=== PATIENT | female | born 1970 | race Caucasian/White ===

== ENCOUNTER → 2016-12-26 | Outpatient (CLI) | payer BC | LOC: LAB 08:17 | DX: R30.0 Dysuria (principal); N30.01 Acute cystitis with hematuria ==

== ENCOUNTER → 2017-04-10 | Outpatient (CLI) | payer BC | LOC: RAD 09:46 | DX: R10.2 Pelvic and perineal pain (principal) ==

== ENCOUNTER → 2017-04-16 | Outpatient (CLI) | payer BC | LOC: RAD 11:15 | DX: R10.2 Pelvic and perineal pain (principal); M89.9 Disorder of bone, unspecified ==

== ENCOUNTER → 2017-04-20 | Outpatient (CLI) | payer BC | LOC: RAD 09:55 | DX: R10.2 Pelvic and perineal pain (principal) ==

== ENCOUNTER 2017-05-21 08:05 | Outpatient (RCR) | payer BC | END 2017-05-21 09:00 | disposition home or self-care (01) | LOC: PT 08:05 | DX: M25.552 Pain in left hip (principal) ==

== ENCOUNTER → 2017-12-20 | Outpatient (CLI) | payer BC ==
[2017-12-20 07:21] LABS: EOS # 0.1 (0.04-0.40); EOS % 1.7 % (1.0-5.0); HEMATOCRIT 43.2 % (37.0-47.0); HEMOGLOBIN 14.3 g/dL (12.5-16.0); LYMPH# 1.8 (1.50-4.00); MEAN CELL VOLUME 95 fl (78-100); MEAN CORPUSCULAR HEMOGLOBIN 31 pg (27-31); MEAN CORPUSCULAR HGB CONC 33 g/dL (33-37); MEAN PLATELET VOLUME 9.1 fl (7.4-10.4); MONO # 0.7 (0.20-0.80); NEU # 4.5 (1.40-6.50); PLATELET COUNT 244 K/mm3 (130-400); RED BLOOD COUNT 4.57 M/mm3 (4.10-5.30); RED CELL DISTRIBUTION WIDTH 13.3 % (11.5-14.5); WHITE BLOOD COUNT 7.2 K/mm3 (4.8-10.8)
[2017-12-20 07:29] LABS: ALBUMIN 4.3 g/dL (3.5-5.0); BUN/CREATININE RATIO 15.7 (6.0-26.0); CALCIUM 9.2 mg/dL (8.4-10.2); TOTAL BILIRUBIN 0.5 mg/dL (0.2-1.3); TOTAL PROTEIN 8.2 g/dL (6.3-8.2)
[2017-12-20 08:33] LABS: ERYTHROCYTE SEDIMENTATION RATE 3 mm/hr (0-20)
== END ==
LOC: LAB 07:06
PROVIDERS: Internal Medicine
DX: Z00.00 Encounter for general adult medical examination without abnormal findings (principal)

== ENCOUNTER → 2017-12-28 | Outpatient (CLI) | payer BC ==
[2017-12-29 00:36] LABS: T3 TOTAL 89 ng/dL (87-178)
== END ==
LOC: LAB 09:23
PROVIDERS: Internal Medicine
DX: R94.6 Abnormal results of thyroid function studies (principal)

== ENCOUNTER → 2018-02-11 | Outpatient (CLI) | payer BC ==
[2018-02-12 01:28] LABS: T3 TOTAL 91 ng/dL (87-178)
== END ==
LOC: LAB 07:20
PROVIDERS: Internal Medicine
DX: R94.6 Abnormal results of thyroid function studies (principal); E03.4 Atrophy of thyroid (acquired)

== ENCOUNTER → 2018-05-14 | Outpatient (CLI) | payer BC | LOC: LAB 07:28 | DX: E03.9 Hypothyroidism, unspecified (principal) ==

== ENCOUNTER → 2018-10-25 | Outpatient (CLI) | payer BC | LOC: LAB 07:40 | DX: E03.9 Hypothyroidism, unspecified (principal) ==

== ENCOUNTER → 2018-11-15 | Outpatient (CLI) | payer BC | LOC: RAD 07:29 | DX: E04.1 Nontoxic single thyroid nodule (principal) ==

== ENCOUNTER → 2019-01-22 | Outpatient (CLI) | payer BC | LOC: LAB 07:04 | DX: E03.9 Hypothyroidism, unspecified (principal) ==

== ENCOUNTER → 2019-12-11 | Outpatient (CLI) | payer BC | LOC: LAB 07:13 | DX: E03.4 Atrophy of thyroid (acquired) (principal); E04.2 Nontoxic multinodular goiter ==

== ENCOUNTER → 2020-05-17 | Outpatient (CLI) | payer BC | LOC: LAB 10:44 | DX: Z01.818 Encounter for other preprocedural examination (principal); Z20.828 Contact with and (suspected) exposure to other viral communicable diseases ==

== ENCOUNTER → 2020-05-20 | Day surgery (SDC) | payer BC | LOC: MSO 08:03 | DX: Z12.11 Encounter for screening for malignant neoplasm of colon (principal) | CPT/HCPCS: 00812; J2704; J3010; J7120 ==

== ENCOUNTER → 2020-06-24 | Outpatient (CLI) | payer BC ==
[2020-06-24 08:09] LABS: EOS # 0.1 (0.04-0.40); EOS % 1.3 % (1.0-5.0); HEMATOCRIT 41.4 % (37.0-47.0); LYMPH# 1.6 (1.50-4.00); MEAN CELL VOLUME 95 fl (78-100); MEAN CORPUSCULAR HEMOGLOBIN 32 pg (27-31); MEAN CORPUSCULAR HGB CONC 34 g/dL (33-37); MEAN PLATELET VOLUME 9.1 fl (7.4-10.4); MONO # 0.5 (0.20-0.80); PLATELET COUNT 252 K/mm3 (130-400); RED BLOOD COUNT 4.37 M/mm3 (4.10-5.30); WHITE BLOOD COUNT 6.2 K/mm3 (4.8-10.8)
[2020-06-24 08:18] LABS: ALBUMIN 4.2 g/dL (3.5-5.0); POTASSIUM 4.4 mmol/L (3.5-5.1)
[2020-06-24 08:19] LABS: CALCIUM 9.2 mg/dL (8.3-10.5)
[2020-06-24 08:21] LABS: TOTAL PROTEIN 7.7 g/dL (6.4-8.3)
[2020-06-24 08:22] LABS: TOTAL BILIRUBIN 0.5 mg/dL (0.2-1.2)
[2020-06-24 09:18] LABS: ERYTHROCYTE SEDIMENTATION RATE 5 mm/hr (0-20)
== END ==
LOC: RAD 07:55
PROVIDERS: Internal Medicine
DX: Z00.00 Encounter for general adult medical examination without abnormal findings (principal); E04.2 Nontoxic multinodular goiter; E03.9 Hypothyroidism, unspecified

== ENCOUNTER → 2020-07-13 | Outpatient (CLI) | payer BC | LOC: RAD 08:01 | DX: M25.551 Pain in right hip (principal); M25.552 Pain in left hip; R10.2 Pelvic and perineal pain; G89.29 Other chronic pain ==

== ENCOUNTER → 2020-08-17 | Outpatient (CLI) | payer BC | LOC: RAD 07:00 | DX: M16.12 Unilateral primary osteoarthritis, left hip (principal) ==

== ENCOUNTER → 2020-12-24 | Outpatient (CLI) | payer BC | LOC: MAMMO 12:53 | DX: Z12.31 Encounter for screening mammogram for malignant neoplasm of breast (principal) ==

== ENCOUNTER → 2021-04-26 | Outpatient (CLI) | payer BC | LOC: LAB 07:12 | DX: E03.9 Hypothyroidism, unspecified (principal) ==

== ENCOUNTER → 2021-12-20 | Outpatient (CLI) | payer BC ==
[2021-12-20 12:02] LABS: BASO # 0.04 K/mm3 (0.02-0.10); EOS # 0.08 K/mm3 (0.04-0.40); EOS % 1.2 % (1.0-5.0); HEMATOCRIT 42.8 % (37.0-47.0); HEMOGLOBIN 14.3 g/dL (12.5-16.0); LYMPH# 1.95 K/mm3 (1.50-4.00); MEAN CELL VOLUME 96 fl (78-100); MEAN CORPUSCULAR HEMOGLOBIN 32 pg (27-31); MEAN CORPUSCULAR HGB CONC 33 g/dL (33-37); MEAN PLATELET VOLUME 9.1 fl (7.4-10.4); MONO # 0.55 K/mm3 (0.20-0.80); PLATELET COUNT 229 K/mm3 (130-400); RED BLOOD COUNT 4.48 M/mm3 (4.10-5.30); RED CELL DISTRIBUTION WIDTH 12.5 % (11.5-14.5); WHITE BLOOD COUNT 6.8 K/mm3 (4.8-10.8)
[2021-12-20 12:08] LABS: POTASSIUM 4.5 mmol/L (3.5-5.1)
[2021-12-20 12:09] LABS: ALBUMIN 4.4 g/dL (3.5-5.0)
[2021-12-20 12:10] LABS: CALCIUM 9.4 mg/dL (8.3-10.5)
[2021-12-20 12:11] LABS: TOTAL PROTEIN 7.7 g/dL (6.4-8.3)
[2021-12-20 12:13] LABS: TOTAL BILIRUBIN 0.6 mg/dL (0.2-1.2)
== END ==
LOC: LAB 11:30
PROVIDERS: Internal Medicine
DX: Z00.00 Encounter for general adult medical examination without abnormal findings (principal); Z12.11 Encounter for screening for malignant neoplasm of colon